=== PATIENT | female | born 1955 | race Caucasian/White ===

== ENCOUNTER 2017-03-07 22:16 | Emergency (ER) | payer BC ==
[2017-03-07] MEDS ORDERED: NO HOME MEDICATION XX (22:23)
[2017-03-07] MEDS ORDERED: KEFLEX500 M4 PO (23:11)
== END 2017-03-07 23:29 ==
LOC: EDMED 22:16
DX: L03.113 Cellulitis of right upper limb (principal); M19.041 Primary osteoarthritis, right hand